=== PATIENT | female | born 1945 | race Caucasian/White ===

== ENCOUNTER 2024-11-15 19:27 | Inpatient (IN) | payer MEDICARE ==
[~2024-11-15] VITALS: Ht 167.6 cm; Wt 63.5 kg
[2024-11-15 19:28] VITALS: RESP 18; TEMP 99
[2024-11-15 20:45] VITALS: PULSE 76
[2024-11-15 22:31] LABS: BACTERIA,URINE MANY /HPF; BILIRUBIN,URINE NEGATIVE (NEGATIVE); CLARITY,URINE CLOUDY (CLEAR); COLOR,URINE YELLOW (YELLOW); EPITHELIAL CELLS,URINE FEW /LPF; GLUCOSE, URINE NEGATIVE (NEGATIVE); KETONES,URINE NEGATIVE (NEGATIVE); LEUKOCYTE ESTERASE ,URINE LARGE (NEGATIVE); NITRITE,URINE POSITIVE (NEGATIVE); PH,URINE 5.5 (5 - 7); PROTEIN,URINE DIPSTICK 2+ (NEGATIVE); RBC,URINE 21-50 /HPF (0-5); URINE UROBILINOGEN 0.2 mg/dL (0.2 - 1); WBC,URINE (MAN) >50 /HPF (0-5)
[2024-11-15 22:32] LABS: AMORPHOUS SEDIMENT,URINE MANY
[2024-11-15] MEDS ORDERED: SODIUM CHLORIDE FLUSH 10 ML SYR INJ PRN (23:15)
[2024-11-15 23:19] LABS: BASOPHILS # (AUTO) 0.1 (0.0-0.1); BASOPHILS % 0.6 % (0.0-1.0); EOSINOPHILS # (AUTO) 0.4 (0.0-0.4); EOSINOPHILS % 5.5 % (0.0-6.0); HEMATOCRIT 37.7 % (34.2-44.1); HEMOGLOBIN 13.2 g/dL (12.0-16.0); LYMPHOCYTES # (AUTO) 1.6 (1.0-3.2); LYMPHOCYTES % 20.2 % (18.0-39.1); MEAN CORPUSCULAR HEMOGLOBIN 32.2 pg (28-32); MONOCYTES # (AUTO) 0.9 (0.2-0.8); NEUTROPHILS # (AUTO) 4.9 (2.1-6.9); NEUTROPHILS % 62.2 % (38.7-80.0); PLATELET COUNT 140 x10e3/uL (140-360); RED CELL DISTRIBUTION WIDTH 14.6 % (11.7-14.4); WHITE BLOOD COUNT 7.94 x10e3/uL (4.8-10.8)
[2024-11-15 23:28] LABS: ANION GAP 17.9 mmol/L (8-16); BILIRUBIN,TOTAL 1.4 mg/dL (0.2-1.2); CALCIUM 9.3 mg/dL (8.4-10.2); CREATININE, SERUM 1.4 mg/dL (0.57-1.11); POTASSIUM 3.9 mmol/L (3.5-5.1)
[2024-11-15] MEDS: MEROPENEM 1 GM in SODIUM CHLORIDE 0.9% 100 ML IV SCH (23:36)
[2024-11-15 23:55] VITALS: BP 172/51; PULSE 68; RESP 18; TEMP 97.3; O2SAT 99
[2024-11-16] VITALS (8 sets, daily range): BP systolic 138–182; BP diastolic 51–66; PULSE 68–89; RESP 16–18; TEMP 97.3–97.9; O2SAT 96–100
[2024-11-16] MEDS: SODIUM CHLORIDE 0.9% 1000ML 1,000 ML IV SCH (04:40)
[2024-11-16 05:53] LABS: BASOPHILS % 0.6 % (0.0-1.0); EOSINOPHILS # (AUTO) 0.4 (0.0-0.4); EOSINOPHILS % 5.9 % (0.0-6.0); HEMATOCRIT 36.1 % (34.2-44.1); HEMOGLOBIN 12.4 g/dL (12.0-16.0); LYMPHOCYTES # (AUTO) 1.6 (1.0-3.2); LYMPHOCYTES % 24.5 % (18.0-39.1); MEAN CORPUSCULAR HEMOGLOBIN 31.7 pg (28-32); MEAN CORPUSCULAR HGB CONC 34.3 g/dL (31-35); MEAN CORPUSCULAR VOLUME 92.3 fL (81-99); MONOCYTES # (AUTO) 0.6 (0.2-0.8); MONOCYTES % 9.6 % (4.4-11.3); NEUTROPHILS # (AUTO) 3.9 (2.1-6.9); NEUTROPHILS % 58.9 % (38.7-80.0); PLATELET COUNT 111 x10e3/uL (140-360); RED BLOOD COUNT 3.91 x10e6/uL (3.6-5.1); RED CELL DISTRIBUTION WIDTH 14.5 % (11.7-14.4); WHITE BLOOD COUNT 6.58 x10e3/uL (4.8-10.8)
[2024-11-16 06:36] LABS: ALBUMIN 3.9 g/dL (3.5-5.0); ALBUMIN/GLOBULIN RATIO 1.1 (0.8-2.0); ANION GAP 16.6 mmol/L (8-16); BILIRUBIN,TOTAL 0.9 mg/dL (0.2-1.2); CALCIUM 8.8 mg/dL (8.4-10.2); CREATININE, SERUM 1.17 mg/dL (0.57-1.11); POTASSIUM 3.6 mmol/L (3.5-5.1); TOTAL PROTEIN 7.4 g/dL (6.5-8.1)
[2024-11-16] MEDS ORDERED: ACETAMINOPHEN 325 MG TAB PO PRN (11:00)
[2024-11-16] MEDS ORDERED: POTASSIUM CHLORIDE 20 MEQ TAB CR PO PRN (11:00)
[2024-11-16] MEDS ORDERED: SIMETHICONE 80 MG CHEW PO PRN (11:00)
[2024-11-16] MEDS ORDERED: BENZONATATE 100 MG CAP PO PRN (11:00)
[2024-11-16] MEDS ORDERED: LIDOCAINE 4% PATCH TP PRN (11:00)
[2024-11-16] MEDS ORDERED: DOCUSATE SODIUM 100 MG CAP PO PRN (11:00)
[2024-11-16] MEDS ORDERED: DEXTROSE 50% SYRINGE 50 ML IV PRN ×2 (11:00→15:15)
[2024-11-16] MEDS ORDERED: ALBUTEROL/IPRATROPIUM 3 ML NEB NEB PRN (11:00)
[2024-11-16] MEDS: HYDRALAZINE HCL 20 MG/ML VIAL IV PRN (11:40)
[2024-11-16] MEDS: NIFEDIPINE CR 30 MG TAB PO SCH (11:40)
[2024-11-16] MEDS ORDERED: CITALOPRAM HBR20 MG PO (14:15)
[2024-11-16] MEDS ORDERED: MAGNESIUM OXID400 MG PO (14:15)
[2024-11-16] MEDS ORDERED: NEURONTIN300 MG PO (14:15)
[2024-11-16] MEDS ORDERED: SENNOSIDES-DOC1 EACH PO (14:15)
[2024-11-16] MEDS ORDERED: DOCUSATE SODIU100 MG PO (14:15)
[2024-11-16] MEDS ORDERED: HYDROXYZIN10 MG/5 ML PO (14:15)
[2024-11-16] MEDS ORDERED: LUMIGAN2.5 M1 OP (14:15)
[2024-11-16] MEDS ORDERED: VALACYCLOVIR500 MG PO (14:15)
[2024-11-16] MEDS ORDERED: TRESIBA FL100 UNIT/1 (14:15)
[2024-11-16] MEDS ORDERED: INSULIN AS100 UNIT/2 (14:15)
[2024-11-16] MEDS ORDERED: AMLODIPINE BESYL5 MG PO (14:15)
[2024-11-16] MEDS ORDERED: ASPIRIN EC81 MG PO (14:15)
[2024-11-16] MEDS ORDERED: BRIMONIDINE TART5 ML OP (14:15)
[2024-11-16] MEDS ORDERED: OMEPRAZOLE40 MG PO (14:15)
[2024-11-16] MEDS ORDERED: VITAMIN D350 MC1 PO (14:15)
[2024-11-16] MEDS ORDERED: LEVOTHYROXINE88 MCG PO (14:15)
[2024-11-16] MEDS: BRIMONIDINE TARTRATE (OPTH) 5 ML LIQD OP SCH (17:00)
[2024-11-16] MEDS: ENOXAPARIN SOD INJ 40 MG/0.4 ML SYR SC SCH (17:25)
[2024-11-16] MEDS: INSULIN LISPRO 100 UNIT/1 ML 3ML VIAL SQ SCH (17:26)
[2024-11-16] MEDS: PHENAZOPYRIDINE HCL 100 MG TAB PO SCH (17:28)
[2024-11-16] MEDS ORDERED: IOPAMIDOL 370 MG/ML 100 ML INFUS..BTL INJ ONE (20:22)
[2024-11-16] MEDS ORDERED: MELATONIN 5 MG TABLET PO PRN (21:00)
[2024-11-16] MEDS: GABAPENTIN 300 MG CAP PO SCH (21:51)
[2024-11-16] MEDS: BIMATOPROST(OPTH) 2.5 ML BOTTLE OP SCH (21:51)
[2024-11-17] VITALS (11 sets, daily range): BP systolic 76–132; BP diastolic 50–64; PULSE 72–90; RESP 16–19; TEMP 97.7–98.2; O2SAT 95–100
[2024-11-17 05:30] LABS: BASOPHILS % 0.5 % (0.0-1.0); EOSINOPHILS # (AUTO) 0.4 (0.0-0.4); HEMATOCRIT 33.6 % (34.2-44.1); HEMOGLOBIN 11.6 g/dL (12.0-16.0); LYMPHOCYTES # (AUTO) 1.1 (1.0-3.2); LYMPHOCYTES % 18.5 % (18.0-39.1); MEAN CORPUSCULAR HEMOGLOBIN 31.7 pg (28-32); MEAN CORPUSCULAR HGB CONC 34.5 g/dL (31-35); MEAN CORPUSCULAR VOLUME 91.8 fL (81-99); MONOCYTES # (AUTO) 0.7 (0.2-0.8); MONOCYTES % 11.9 % (4.4-11.3); NEUTROPHILS # (AUTO) 3.5 (2.1-6.9); NEUTROPHILS % 61.8 % (38.7-80.0); PLATELET COUNT 113 x10e3/uL (140-360); RED BLOOD COUNT 3.66 x10e6/uL (3.6-5.1); RED CELL DISTRIBUTION WIDTH 14.6 % (11.7-14.4); WHITE BLOOD COUNT 5.72 x10e3/uL (4.8-10.8)
[2024-11-17 06:01] LABS: ANION GAP 17.6 mmol/L (8-16); CALCIUM 8.4 mg/dL (8.4-10.2); CREATININE, SERUM 1.2 mg/dL (0.57-1.11); MAGNESIUM 1.6 MG/DL (1.3-2.1); POTASSIUM 3.6 mmol/L (3.5-5.1)
[2024-11-17] MEDS: PANTOPRAZOLE SOD 40 MG TABEC PO SCH (08:23)
[2024-11-17] MEDS: LEVOTHYROXINE SODIUM 100 MCG TAB PO SCH (08:23)
[2024-11-17] MEDS: CITALOPRAM HYDROBROMIDE 20 MG TAB PO SCH (08:23)
[2024-11-18] VITALS (11 sets, daily range): BP systolic 104–128; BP diastolic 43–72; PULSE 67–85; RESP 18–21; TEMP 97.7–98.6; O2SAT 96–100
[2024-11-18] MEDS: CIPROFLOXACIN 500 MG TAB PO SCH (17:25)
[2024-11-19] VITALS (7 sets, daily range): BP systolic 120–134; BP diastolic 51–63; PULSE 68–82; RESP 16–20; TEMP 97.5–98.5; O2SAT 95–99
[2024-11-19] MEDS: ONDANSETRON HCL INJ 2MG/ML 2ML 2 MG/ML VIAL IV PRN (04:39)
[2024-11-19 05:39] LABS: BASOPHILS % 0.2 % (0.0-1.0); EOSINOPHILS # (AUTO) 0.2 (0.0-0.4); EOSINOPHILS % 3.5 % (0.0-6.0); HEMATOCRIT 32.8 % (34.2-44.1); HEMOGLOBIN 11.4 g/dL (12.0-16.0); LYMPHOCYTES # (AUTO) 1.1 (1.0-3.2); LYMPHOCYTES % 17.1 % (18.0-39.1); MEAN CORPUSCULAR HGB CONC 34.8 g/dL (31-35); MEAN CORPUSCULAR VOLUME 92.1 fL (81-99); MONOCYTES # (AUTO) 0.6 (0.2-0.8); NEUTROPHILS # (AUTO) 4.6 (2.1-6.9); NEUTROPHILS % 69.9 % (38.7-80.0); RED BLOOD COUNT 3.56 x10e6/uL (3.6-5.1); RED CELL DISTRIBUTION WIDTH 14.3 % (11.7-14.4); WHITE BLOOD COUNT 6.56 x10e3/uL (4.8-10.8)
[2024-11-19 05:42] LABS: PLATELET COUNT 122 x10e3/uL (140-360)
[2024-11-19 05:53] LABS: ANION GAP 13.8 mmol/L (8-16); CALCIUM 8.6 mg/dL (8.4-10.2); CREATININE, SERUM 1.11 mg/dL (0.57-1.11); POTASSIUM 3.8 mmol/L (3.5-5.1)
== END 2024-11-19 17:28 | disposition home health service (06) | DRG 690 ==
LOC: ER 19:48 → ERHOLD 23:01 → MED/SURG 23:55
PROVIDERS: ADMIT Internal Medicine; ATTEND Internal Medicine
DX: N30.90 Cystitis, unspecified without hematuria (principal); N17.9 Acute kidney failure, unspecified; G54.8 Other nerve root and plexus disorders; K74.60 Unspecified cirrhosis of liver; C43.59 Malignant melanoma of other part of trunk; E11.9 Type 2 diabetes mellitus without complications; B96.89 Other specified bacterial agents as the cause of diseases classified elsewhere; I10 Essential (primary) hypertension; I70.1 Atherosclerosis of renal artery; N83.202 Unspecified ovarian cyst, left side; E86.0 Dehydration; E78.5 Hyperlipidemia, unspecified; R53.81 Other malaise; Z85.3 Personal history of malignant neoplasm of breast; Z90.49 Acquired absence of other specified parts of digestive tract; Z88.5 Allergy status to narcotic agent; Z88.6 Allergy status to analgesic agent; Z88.8 Allergy status to other drugs, medicaments and biological substances; Z83.3 Family history of diabetes mellitus; Z82.49 Family history of ischemic heart disease and other diseases of the circulatory system
CPT/HCPCS: 36415; 70450; 74177; 80048; 80053; 81001; 82948; 83735; 85025; 87040; 87086; 87186; 94799; 99252; 99284; J0360; J1650; J2185; J2405; J2470; J7030; J7050; Q9967